=== PATIENT | male | born 1940 | race Caucasian/White ===

== ENCOUNTER 2023-12-27 08:55 | Day surgery (SDC) | payer OTHER ==
[2023-12-27] MEDS ORDERED: MEPERIDINE 100 MG INJ. 100 MG/ML VIAL ONE (10:05)
[2023-12-27] MEDS ORDERED: MIDAZOLAM HCL 5 MG/5 ML VIAL ONE (10:06)
[2023-12-27 13:19] VITALS: BP_SYST 142; PULSE 67; RESP 18; TEMP 98.2; O2SAT 96
== END 2023-12-27 11:37 | disposition home or self-care (01) ==
LOC: SDS 08:55 → SMU 08:56 → SDS 11:37
PROVIDERS: ATTEND Internal Medicine Gastroenterology
DX: Z12.11 Encounter for screening for malignant neoplasm of colon (principal); K62.1 Rectal polyp; K57.30 Diverticulosis of large intestine without perforation or abscess without bleeding; K64.8 Other hemorrhoids; I25.2 Old myocardial infarction; Z98.818 Other dental procedure status; Z88.6 Allergy status to analgesic agent; Z88.8 Allergy status to other drugs, medicaments and biological substances; Z98.890 Other specified postprocedural states; Z86.010 Personal history of colon polyps
CPT/HCPCS: 45385; 99152; 88305; G0378; J2250; J2175